=== PATIENT | female | born 1940 | race Caucasian/White ===

== ENCOUNTER 2017-11-29 09:27 | Day surgery (SDC) | payer MEDICARE ==
[2017-11-29] VITALS (11 sets, daily range): BP systolic 102–129; BP diastolic 38–83
[~2017-11-29] VITALS: Ht 167.6 cm; Wt 83.7 kg
[2017-11-29] MEDS ORDERED: LORazepam 0.5 MG tablet PO PRN (10:10)
[2017-11-29] MEDS ORDERED: diphenhydrAMINE 25mg capsule PO PRN (10:10)
[2017-11-29] MEDS ORDERED: normal saline 1000ml 1,000 ML IV SCH (10:10)
[2017-11-29] MEDS ORDERED: POTA10TA15 PO (11:10)
[2017-11-29] MEDS ORDERED: FURO-150 PO (11:10)
[2017-11-29] MEDS ORDERED: CARV3.122 PO (11:10)
[2017-11-29] MEDS ORDERED: ASPI-1265 PO (11:13)
[2017-11-29] MEDS ORDERED: DESO15CR30 TOP (11:13)
[2017-11-29] MEDS ORDERED: midazolam 2 mg/2 ml injection ONE (12:54)
[2017-11-29] MEDS ORDERED: fentaNYL/PF 50MCG/1 ML 2ML syringe ONE (12:55)
[2017-11-29] MEDS ORDERED: iohexol 350MG/ML 100ml bottle IV ONE (12:55)
[2017-11-29] MEDS ORDERED: LIDOcaine 1% w/EPI 1:100,000 30ml vial (MDV) ONE (12:56)
[2017-11-29] MEDS ORDERED: HYDROcodone/acetaminophen 10/325mg tab PO PRN (14:10)
[2017-11-29] MEDS ORDERED: proCHLORperazine 10 MG/2 ml inj IV PRN (14:10)
[2017-11-29] MEDS ORDERED: nitroGLYCERIN 0.4mg SUBLingual tab SL PRN (14:10)
[2017-11-29] MEDS ORDERED: ondansetron/PF 4mg/2ml inj IV PRN (14:10)
[2017-11-29] MEDS ORDERED: OXAZEpam 15mg capsule PO PRN (14:10)
[2017-11-29] MEDS ORDERED: HYDROcodone/acetaminophen 5mg/325mg tablet PO PRN (14:10)
[2017-11-29] MEDS ORDERED: potassium chloride 10mEq ER tablet PO SCH (20:00)
[2017-11-30] MEDS ORDERED: carVEDilol 3.125mg tablet PO SCH (08:00)
[2017-11-30] MEDS ORDERED: furosemide 40mg tablet PO SCH (08:00)
[2017-11-30] MEDS ORDERED: aspirin 81mg tab.chew PO SCH (08:30)
== END 2017-11-29 19:25 | disposition home or self-care (01) ==
LOC: SSTAY O 09:27
PROVIDERS: ATTEND Internal Medicine Interventional Cardiology
DX: I25.10 Atherosclerotic heart disease of native coronary artery without angina pectoris (principal); I45.2 Bifascicular block; I11.0 Hypertensive heart disease with heart failure; I50.9 Heart failure, unspecified; I48.0 Paroxysmal atrial fibrillation; G89.29 Other chronic pain; Z88.0 Allergy status to penicillin; Z90.49 Acquired absence of other specified parts of digestive tract; Z90.89 Acquired absence of other organs; Z90.710 Acquired absence of both cervix and uterus; Z79.82 Long term (current) use of aspirin; Z79.899 Other long term (current) drug therapy; Z98.890 Other specified postprocedural states
CPT/HCPCS: 93005; 93458; 99152; A6257; A6258; A6449; C1769; J1644; J2250; J3010; J3490; J7030; Q0163; Q9967; A4620